=== PATIENT | female | born 1960 | race Caucasian/White ===

== ENCOUNTER 2019-01-16 18:00 | Emergency (ER) | payer OTHER ==
[~2019-01-16] VITALS: Ht 170.2 cm; Wt 49.7 kg
[2019-01-16 18:41] LABS: BASOPHILS # (AUTO) 0.05 x10^3/uL (0-0.1); BASOPHILS % (AUTO) 1 % (0-1); EOSINOPHILS # (AUTO) 0.06 x10^3/uL (0-0.4); EOSINOPHILS % (AUTO) 1 % (1-7); LYMPHOCYTES # (AUTO) 3.12 x10^3/uL (1-3.4); LYMPHOCYTES % (AUTO) 42 % (22-44); MD NO; MEAN CORPUSCULAR HGB CONC 33.5 g/dL (32.4-35.8); MEAN CORPUSCULAR VOLUME 95.6 fL (80-100); MEAN PLATELET VOLUME 8.2 fL (7.4-10.4); MONOCYTES # (AUTO) 0.51 x10^3/uL (0.2-0.8); MONOCYTES % (AUTO) 7 % (2-9); NEUTROPHILS # (AUTO) 3.69 x10^3/uL (1.8-6.8); NEUTROPHILS % (AUTO) 50 % (42-75); PLATELET COUNT 254 x10^3/uL (130-400); RED BLOOD COUNT 4.39 x10^6/uL (3.82-5.3); RED CELL DISTRIBUTION WIDTH 14.3 % (9.6-15.2)
[2019-01-16] MEDS ORDERED: MULT-516 PO (18:42)
[2019-01-16] MEDS ORDERED: ASCO500C2 PO (18:43)
[2019-01-16] MEDS ORDERED: CHOL2000 PO (18:44)
[2019-01-16] MEDS ORDERED: CALC-112 PO (18:45)
[2019-01-16] MEDS ORDERED: GINK60CA2 PO (18:46)
[2019-01-16] MEDS ORDERED: UBID100C41 PO (18:47)
[2019-01-16] MEDS ORDERED: MAGN400T36 PO (18:49)
[2019-01-16] MEDS ORDERED: [UNRECOGNIZED DRUG - CODE] PO (18:51)
[2019-01-16] MEDS ORDERED: FOLI-17 PO (18:52)
[2019-01-16 18:53] LABS: ALBUMIN 4.1 g/dL (3.4-5.0); ANION GAP 7 mmol/L (5-15); CALCIUM 8.9 mg/dL (8.5-10.1); CHLORIDE 106 mmol/L (98-107); CREATININE 0.78 mg/dL (0.55-1.02)
[2019-01-16 19:00] LABS: TROPONIN I < 0.015 ng/mL (0.000-0.045)
--- NOTE | 2019-01-16 19:05 | NUR ---
RECEIVED REPORT FROM CHIKI BILL AND REESE RN TO ASSUME PT. CARE. PT. REPORTS FEELING BETTER NOW. VS UPDATED. CONTINUOUS MONITORS ALL IN PLACE.
--- NOTE | 2019-01-16 19:08 | NUR ---
PRESLEY BHANDARI IN TO DISCUSS POC WITH PT.
[2019-01-16 19:45] VITALS: BP 141/90
[2019-01-16 20:22] LABS: FREE T4 (FREE THYROXINE) 1.23 ng/dL (0.76-1.46)
== END 2019-01-16 19:53 | disposition home or self-care (01) ==
LOC: ED 19:15
DX: I10 Essential (primary) hypertension (principal)
CPT/HCPCS: 36415; 71045; 80048; 82040; 84439; 84443; 84484; 85025; 93005; 99284